=== PATIENT | female | born 1975 | race Hispanic/Latino ===

== ENCOUNTER → 2018-02-22 | Outpatient (CLI) | payer BC ==
--- NOTE | 2018-02-22 14:32 | Diagnostic Imaging Report ---
PROCEDURE:ULTRASOUND GUIDANCE FOR PROCEDURE-ULTRASOUND GUIDED FINE NEEDLE ASPIRATION OF LEFT THYROID LOBE NODULE COMPARISON:None. INDICATIONS:NONTOXIC GOITER MEDICATION: 5 cc of 1% subcutaneous lidocaine EBL: None. SPECIMENS: Fine needle aspirates from left thyroid lobe nodule sent to pathology. FINDINGS: Informed consent was obtained. Ultrasound was used to identify the previously described left thyroid lobe mixed solid cystic nodule. The overlying skin was prepped and draped in the usual sterile fashion. Lidocaine 1% was infiltrated into the subcutaneous tissues for local anesthesia. Three 25 gauge fine needle aspirations were performed with ultrasound guidance. Per pathology, colloid from cystic components were visualized on preliminary evaluation with no follicular cells visualized. Subsequently, three additional 22 gauge fine needle aspirates were performed with ultrasound guidance. Ultrasound demonstrated no evidence of complication. Sterile bandage was placed. There were no immediate post-procedural complications. CONCLUSION: Ultrasound guided fine needle aspiration of left thyroid lobe nodule. Dictated by: LENCHO GUTIÉRREZ M.D. on 02/22/2018 at 14:37 Electronically approved by: LENCHO GUTIÉRREZ M.D. on 02/22/2018 at 14:37
--- NOTE | 2018-02-22 14:34 | Diagnostic Imaging Report ---
PROCEDURE: ULTRASOUND GUIDANCE FOR PROCEDURE-ULTRASOUND GUIDED FINE NEEDLE ASPIRATION OF LEFT THYROID LOBE NODULE COMPARISON: None. INDICATIONS: NONTOXIC GOITER MEDICATION: 5 cc of 1% subcutaneous lidocaine EBL: None. SPECIMENS: Fine needle aspirates from left thyroid lobe nodule sent to pathology. FINDINGS: Informed consent was obtained. Ultrasound was used to identify the previously described left thyroid lobe mixed solid cystic nodule. The overlying skin was prepped and draped in the usual sterile fashion. Lidocaine 1% was infiltrated into the subcutaneous tissues for local anesthesia. Three 25 gauge fine needle aspirations were performed with ultrasound guidance. Per pathology, colloid from cystic components were visualized on preliminary evaluation with no follicular cells visualized. Subsequently, three additional 22 gauge fine needle aspirates were performed with ultrasound guidance. Ultrasound demonstrated no evidence of complication. Sterile bandage was placed. There were no immediate post-procedural complications. CONCLUSION: Ultrasound guided fine needle aspiration of left thyroid lobe nodule. Dictated by: LENCHO GUTIÉRREZ M.D. on 02/22/2018 at 14:39 Electronically approved by: LENCHO GUTIÉRREZ M.D. on 02/22/2018 at 14:39
== END ==
LOC: US 12:08
PROVIDERS: ATTEND Family Medicine
DX: E04.9 Nontoxic goiter, unspecified (principal); R07.89 Other chest pain
CPT/HCPCS: 10022; 76942; 88112; 88305